=== PATIENT | female | born 1985 | race American Indian/Alaskan Native ===

== ENCOUNTER 2017-11-20 18:55 | Emergency (ER) | payer MEDICAID ==
[2017-11-20 19:20] VITALS: BMI 26.5
[2017-11-20 19:25] VITALS: RESP 18; O2SAT 99
[2017-11-20] MEDS ORDERED: Sodium Chloride 0.9% 1,000 ML IV ONE (19:37)
--- NOTE | 2017-11-20 19:37 | C.PDOC ---
History Of Present Illness Patient presents to the ER 8 weeks , P:1, with a complaint of LLQ abdominal pain and vaginal bleeding that began today. Patient was seen by her PMD recently and had initial blood work done, however, still has not received results. Denies fever, chills, nausea, or vomiting. Time Seen by Provider: 11/20/17 19:36 Chief Complaint (Nursing): Abdominal Pain History Per: Patient History/Exam Limitations: no limitations Onset/Duration Of Symptoms: Hrs Current Symptoms Are (Timing): Still Present Severity: Moderate Pain Scale Rating Of: 4 Location Of Pain/Discomfort: LLQ Radiation Of Pain To:: None Quality Of Discomfort: Unable To Describe Associated Symptoms: denies: Fever, Chills, Nausea, Vomiting Exacerbating Factors: None Alleviating Factors: None Recent travel outside of the [place]: No Abnormal Vaginal Bleeding: Yes Past Medical History Reviewed: Historical Data, Nursing Documentation, Vital Signs Vital Signs: Last Vital Signs Temp 98.0 F 11/20/17 19:10 Pulse 98 H 11/20/17 19:10 Resp 18 11/20/17 19:10 BP 132/87 11/20/17 19:10 Pulse Ox 99 11/20/17 19:59 - Medical History PMH: Gastritis, Gall Bladder Disease Surgical History: Cholecystectomy (2014), Endoscopy, - [facility] Procedures LAPAROSCOPIC CHOLECYSTECTOMY (04/12/15) OTHER OPEN UMBILICAL HERNIORRHAPHY (04/12/15) Family History: States: No Known Family Hx - Social History Hx Tobacco Use: No Hx Alcohol Use: No Hx Substance Use: No - Immunization History Hx Tetanus Toxoid Vaccination: No Hx Influenza Vaccination: No Hx Pneumococcal Vaccination: No Review Of Systems Constitutional: Negative for: Fever, Chills Cardiovascular: Negative for: Light Headedness Gastrointestinal: Positive for: Abdominal Pain. Negative for: Nausea, Vomiting Genitourinary: Positive for: Vaginal Bleeding Physical Exam - Physical Exam Appears: Non-toxic Skin: Warm, Dry Head: Normacephalic Oral Mucosa: Moist Chest: Symmetrical, No Tenderness Cardiovascular: Rhythm Regular Respiratory: No Rales, No Rhonchi, No Wheezing Gastrointestinal/Abdominal: Soft, Tenderness (mild suprapubic), No Guarding, No Rebound Neurological/Psych: Oriented x3 ED Course And Treatment - Laboratory Results Result Diagrams: 11/20/17 19:46 11/20/17 19:46 O2 Sat by Pulse Oximetry: 99 (room air) Pulse Ox Interpretation: Normal Progress Note: Blood work and urinalysis ordered. IV fluids administered. Reevaluation Time: 22:16 Reassessment Condition: Improved Medical Decision Making Medical Decision Making: Upon provider reevaluation patient is feeling better, is medically stable, and requires no further treatment in the ED at this time. Patient will be discharged home with Rx for macrobid . Counseling was provided and all questions were answered regarding diagnosis and need for follow up with the referred clinic. There is agreement to discharge plan. Return if symptoms persist or worsen. 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 I have reviewed the chart and agree that the record accurately reflects my personal performance of the history, physical exam, medical decision making, and the department course for this patient. I have also personally directed, reviewed, and agree with the discharge instructions and disposition.
[2017-11-20] MEDS ORDERED: Sodium Chloride 0.9% 1,000 ML ONE (19:49)
[2017-11-20 19:50] LABS: BASO % 0.3 % (0.0-2.0); EOS # 0.1 K/uL (0.0-0.7); EOS % 0.6 % (0.0-4.0); HEMOGLOBIN 13.1 g/dL (11.0-16.0); LYMPH # 2.7 K/uL (1.0-4.3); LYMPH % 17.2 % (20.0-40.0); MEAN CELL VOLUME 84.2 fL (81.0-99.0); MEAN CORPUSCULAR HEMOGLOBIN 28.7 pg (27.0-31.0); MEAN PLATELET VOLUME 8.9 fL (7.2-11.7); MONO # 0.9 K/uL (0.0-0.8); MONO % 5.3 % (0.0-10.0); NEUT # 12.2 K/uL (1.8-7.0); NEUT % 76.6 % (50.0-75.0); RBC 4.57 Mil/uL (3.80-5.20); RED CELL DISTRIBUTION WIDTH 14.3 % (11.5-14.5); WHITE BLOOD COUNT 15.9 K/uL (4.8-10.8)
[2017-11-20 19:59] LABS: SQUAMOUS EPITHIAL 8 /hpf (0-5); URINE BILIRUBIN NEGATIVE (NEGATIVE); URINE BLOOD 3+ (NEGATIVE); URINE CLARITY Hazy (Clear); URINE COLOR Amber (YELLOW); URINE GLUCOSE (UA) NORMAL (Normal); URINE PROTEIN 1+ mg/dL (NEGATIVE)
[2017-11-20 20:00] LABS: INR 1.1; PROTHROMBIN TIME 12.4 SECONDS (9.7-12.2)
[2017-11-20 20:01] LABS: URINE LEUKOCYTE ESTERASE 1+ Leu/uL (Negative)
[2017-11-20 20:03] LABS: ALBUMIN 3.9 g/dL (3.5-5.0); ALT/SGPT 15 U/L (9-52); AST/SGOT 23 U/L (14-36); BLOOD UREA NITROGEN 9 mg/dL (7-17); GFR AFRICAN-AMERICAN > 60; GFR NON-AFRICAN AMERICAN > 60
--- NOTE | 2017-11-20 22:04 | US ---
EXAM: US First Trimester, Transabdominal CLINICAL HISTORY: 32 years old, female; Signs and symptoms; Lmp or gestational age (in weeks): Unknown lmp; Other: Vag bleed; ; Additional info: Vag bleed hcg [id number] TECHNIQUE: Real-time transabdominal obstetrical ultrasound of the maternal pelvis and a first trimester with image documentation. COMPARISON: No relevant prior studies available. FINDINGS: Gestation: Single live intrauterine gestation. heart rate of 178 beats per minute. [place]-rump length of 3.6 cm, correlating with gestational age of 10 weeks 3 days. Uterus/cervix: 7.6 x 7.5 x 6.6 pedunculated uterine fundal mass. No subchorionic hemorrhage. No cervical dilatation or effacement. Ovaries: RIGHT ovary: Probable 1.7 x 1.5 x 2.2 cm corpus luteal cyst. LEFT ovary: Normal. No adnexal masses. Free fluid: No significant free fluid. IMPRESSION: 1. Single live intrauterine gestation. 2. Probable fibroid. 3. Incidental/non-acute findings are described above.
[2017-11-20 22:30] VITALS: BP 125/80; PULSE 77; TEMP 98.2
== END 2017-11-20 22:31 | disposition home or self-care (01) ==
LOC: C.ER 18:55
DX: O20.0 Threatened abortion (principal); Z3A.10 10 weeks gestation of pregnancy
CPT/HCPCS: 76801; 80053; 81001; 84702; 85025; 85610; 85730; 86850; 86900; 96360; 99285; J7040

== ENCOUNTER 2017-11-23 13:54 | Emergency (ER) | payer MEDICAID ==
[2017-11-23 13:54] VITALS: BMI 26.5
[2017-11-23 14:20] VITALS: O2SAT 99
[2017-11-23 15:03] LABS: BASO # 0.1 K/uL (0.0-0.2); BASO % 0.4 % (0.0-2.0); EOS # 0.1 K/uL (0.0-0.7); EOS % 0.8 % (0.0-4.0); HEMOGLOBIN 12.9 g/dL (11.0-16.0); LYMPH # 2.1 K/uL (1.0-4.3); LYMPH % 15.1 % (20.0-40.0); MEAN CELL VOLUME 84.4 fL (81.0-99.0); MEAN CORPUSCULAR HEMOGLOBIN 28.8 pg (27.0-31.0); MEAN CORPUSCULAR HGB CONC 34.1 g/dL (33.0-37.0); MEAN PLATELET VOLUME 8.8 fL (7.2-11.7); MONO % 6.9 % (0.0-10.0); NEUT # 10.8 K/uL (1.8-7.0); NEUT % 76.8 % (50.0-75.0); RBC 4.49 Mil/uL (3.80-5.20); RED CELL DISTRIBUTION WIDTH 14.1 % (11.5-14.5); WHITE BLOOD COUNT 14.1 K/uL (4.8-10.8)
[2017-11-23 15:16] LABS: ALB/GLOB RATIO 0.9 (1.0-2.1); ALBUMIN 3.7 g/dL (3.5-5.0); ALT/SGPT 16 U/L (9-52); AST/SGOT 23 U/L (14-36); BLOOD UREA NITROGEN 7 mg/dL (7-17); CALCIUM 8.9 mg/dl (8.6-10.4); GFR AFRICAN-AMERICAN > 60; GFR NON-AFRICAN AMERICAN > 60
--- NOTE | 2017-11-23 15:18 | C.PDOC ---
History Of Present Illness 32yo female, presents to ED for evaluation of a heavy menstrual like bleeding since earlier today. patient was evaluated in this ER on 11/20/17 for spotting and was noted to be 10w3d per her pelvic US. She currently denies any fever, chills, abdominal pain, nausea or vomiting. No other complaints. Time Seen by Provider: 11/23/17 14:23 Chief Complaint (Nursing): Female Genitourinary History Per: Patient History/Exam Limitations: no limitations Onset/Duration Of Symptoms: Days Current Symptoms Are (Timing): Still Present Abnormal Vaginal Bleeding: Yes Past Medical History Reviewed: Historical Data, Nursing Documentation, Vital Signs Vital Signs: Last Vital Signs Temp 98.2 F 11/23/17 14:13 Pulse 94 H 11/23/17 14:13 Resp 20 11/23/17 14:13 BP 131/84 11/23/17 14:13 Pulse Ox 99 11/23/17 15:18 - Medical History PMH: No Chronic Diseases, Gastritis, Gall Bladder Disease Denies: Chronic Kidney Disease Surgical History: Cholecystectomy, Endoscopy, - [facility] Procedures LAPAROSCOPIC CHOLECYSTECTOMY (04/12/15) OTHER OPEN UMBILICAL HERNIORRHAPHY (04/12/15) Family History: States: No Known Family Hx, Unknown Family Hx - Social History Hx Tobacco Use: No Hx Alcohol Use: No Hx Substance Use: No - Immunization History Hx Tetanus Toxoid Vaccination: Yes Hx Influenza Vaccination: No Hx Pneumococcal Vaccination: No Review Of Systems Except As Marked, All Systems Reviewed And Found Negative. Constitutional: Negative for: Fever, Chills Cardiovascular: Negative for: Chest Pain Respiratory: Negative for: Shortness of Breath Gastrointestinal: Negative for: Abdominal Pain Genitourinary: Positive for: Vaginal Bleeding Physical Exam - Physical Exam Appears: Non-toxic, No Acute Distress Skin: Normal Color, Warm, Dry Head: Atraumatic, Normacephalic Eye(s): bilateral: Normal Inspection, PERRL Oral Mucosa: Moist Neck: Normal ROM, Supple Chest: Symmetrical Cardiovascular: Rhythm Regular Respiratory: Normal Breath Sounds, No Wheezing Gastrointestinal/Abdominal: Normal Exam, Soft, No Tenderness Back: Normal Inspection, No Vertebral Tenderness Extremity: Normal ROM, No Deformity Neurological/Psych: Oriented x3 ED Course And Treatment - Laboratory Results Result Diagrams: 11/23/17 14:53 11/23/17 14:53 Lab Interpretation: Abnormal (, QHCG 128,730/RH A+,) Urine POC: Positive O2 Sat by Pulse Oximetry: 99 (RA) Pulse Ox Interpretation: Normal Reevaluation Time: 19:11 Reassessment Condition: Unchanged Medical Decision Making Medical Decision Making: IUP, viable subchorionic hemorrage, small 2nd ED eval in 3 days. Disposition Doctor Will See Patient In The: Office Counseled Patient/Family Regarding: Studies Performed, Diagnosis - Disposition Disposition: HOME/ ROUTINE Disposition Time: 19:13 Condition: GOOD Forms: [employer] (Qatari) - Clinical Impression Clinical Impression: Bleeding in early - Scribe Statement The provider has reviewed the documentation as recorded by the Scribe (Katie George) Provider Attestation: All medical record entries made by the Scribe were at my direction and personally dictated by me. I have reviewed the chart and agree that the record accurately reflects my personal performance of the history, physical exam, medical decision making, and the department course for this patient. I have also personally directed, reviewed, and agree with the discharge instructions and disposition.
[2017-11-23 15:30] LABS: SQUAMOUS EPITHIAL 2 /hpf (0-5); URINE BILIRUBIN NEGATIVE (NEGATIVE); URINE BLOOD 2+ (NEGATIVE); URINE CLARITY Hazy (Clear); URINE COLOR Yellow (YELLOW); URINE GLUCOSE (UA) NORMAL (Normal); URINE LEUKOCYTE ESTERASE NEG Leu/uL (Negative); URINE PROTEIN NEGATIVE (NEGATIVE); URINE UROBILINOGEN NORMAL mg/dL (0.2-1.0)
[2017-11-23 19:28] VITALS: BP 127/84; PULSE 108; RESP 18; TEMP 98.9
--- NOTE | 2017-11-24 08:56 | US ---
PROCEDURE: OB Pelvic Ultrasound HISTORY: 11 wks, heavy bleeding, ? natural AB COMPARISON: None available. FINDINGS: UTERUS: Single Live intrauterine gestation. CRL equivalent to 10 weeks 5 days gestatioin Gestational sac diameter equivalent to 10 weeks 1 day gestation age (Ultrasound estimated): 10 weeks 3 days Date of delivery (Ultrasound estimated) : 06/18/2018 Heart rate: 154 bpm. Gladys-gestational hemorrhage: Moderate. This measures roughly 4.3 x 3.4 x 3.5 cm. Uterus measures 4 15.0 x 7.1 x 12.0 cm. There are 2 uterine fibroids. There is a uterine body pedunculated fibroid, 6.6 x 6.8 x 6.7 cm. There is a mid to lower sub serosal fibroid, 1.8 x 1.2 x 1.4 cm. CERVIX: 3.8 cm. Closed. RIGHT OVARY: Measures 2.6 x 1.8 x 1.8 cm. No mass. Normal flow. LEFT OVARY: Measures 3.0 x 2.8 x 3.0 cm. No mass. Normal flow. FREE FLUID: None. OTHER FINDINGS: None. IMPRESSION: Single live intrauterine gestation of approximately 10 weeks 3 days. heart rate 154. There is a moderate subchorionic hemorrhage noted consistent with patient current vaginal bleeding. 2 uterine fibroids as described. Cervix 3.8 cm and closed. Unremarkable ovaries.
== END 2017-11-23 19:36 | disposition home or self-care (01) ==
LOC: C.ER 13:54
DX: O20.9 Hemorrhage in early pregnancy, unspecified (principal); Z3A.10 10 weeks gestation of pregnancy

== ENCOUNTER 2017-11-28 22:57 | Emergency (ER) | payer MEDICAID ==
[2017-11-28 22:57] VITALS: BMI 26.5
[2017-11-28] MEDS ORDERED: Sodium Chloride 0.9% 1,000 ML IV ONE (23:22)
[2017-11-28 23:41] LABS: BASO # 0.1 K/uL (0.0-0.2); BASO % 0.5 % (0.0-2.0); EOS # 0.3 K/uL (0.0-0.7); EOS % 2.2 % (0.0-4.0); HEMOGLOBIN 11.4 g/dL (11.0-16.0); LYMPH # 2.9 K/uL (1.0-4.3); LYMPH % 20.2 % (20.0-40.0); MEAN CORPUSCULAR HEMOGLOBIN 28.8 pg (27.0-31.0); MEAN CORPUSCULAR HGB CONC 33.9 g/dL (33.0-37.0); MEAN PLATELET VOLUME 8.8 fL (7.2-11.7); MONO # 0.8 K/uL (0.0-0.8); MONO % 5.9 % (0.0-10.0); NEUT # 10.1 K/uL (1.8-7.0); NEUT % 71.2 % (50.0-75.0); RBC 3.97 Mil/uL (3.80-5.20); RED CELL DISTRIBUTION WIDTH 14.2 % (11.5-14.5); WHITE BLOOD COUNT 14.2 K/uL (4.8-10.8)
[2017-11-28 23:54] LABS: SQUAMOUS EPITHIAL 16 /hpf (0-5); URINE BACTERIA FEW (<OCC); URINE BILIRUBIN NEGATIVE (NEGATIVE); URINE BLOOD 3+ (NEGATIVE); URINE CLARITY Hazy (Clear); URINE COLOR Yellow (YELLOW); URINE GLUCOSE (UA) NORMAL (Normal); URINE LEUKOCYTE ESTERASE 2+ Leu/uL (Negative); URINE PROTEIN 2+ mg/dL (NEGATIVE); URINE UROBILINOGEN NORMAL mg/dL (0.2-1.0)
[2017-11-28 23:59] LABS: ALBUMIN 3.5 g/dL (3.5-5.0); ALT/SGPT 77 U/L (9-52); AST/SGOT 57 U/L (14-36); BLOOD UREA NITROGEN 10 mg/dL (7-17); CALCIUM 8.4 mg/dl (8.6-10.4); GFR AFRICAN-AMERICAN > 60; GFR NON-AFRICAN AMERICAN > 60
--- NOTE | 2017-11-29 01:22 | C.PDOC ---
History Of Present Illness 32 year old female, with no significant past medical history, who presents to the emergency department complaining of vaginal bleeding onset today. Patient states she got up to the bathroom and had large amount of bleeding and passed POC at home. Patient is currently 11 weeks , A0. Patient reports still having some mild vaginal bleeding and pelvic cramping. No further medical complaints. PMD: None provided. 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) Current Symptoms Are (Timing): Still Present Quality Of Discomfort: Cramping Associated Symptoms: Other (vaginal bleeding & pelvic cramping) Abnormal Vaginal Bleeding: Yes : 2 Para: 1 Miscarriage: 0 Past Medical History Reviewed: Historical Data, Nursing Documentation, Vital Signs Vital Signs: Last Vital Signs Temp 98.8 F 11/29/17 03:27 Pulse 89 11/29/17 03:27 Resp 20 11/29/17 03:27 BP 115/79 11/29/17 03:27 Pulse Ox 98 11/29/17 03:27 - Medical History PMH: Gastritis, Gall Bladder Disease Denies: Chronic Kidney Disease Surgical History: Cholecystectomy, Endoscopy, - [facility] Procedures LAPAROSCOPIC CHOLECYSTECTOMY (04/12/15) OTHER OPEN UMBILICAL HERNIORRHAPHY (04/12/15) Family History: States: Unknown Family Hx - Social History Hx Tobacco Use: No Hx Alcohol Use: No Hx Substance Use: No - Immunization History Hx Tetanus Toxoid Vaccination: No Hx Influenza Vaccination: No Hx Pneumococcal Vaccination: No Review Of Systems Except As Marked, All Systems Reviewed And Found Negative. Genitourinary: Positive for: Vaginal Bleeding, Pelvic Pain (cramping) Physical Exam - Physical Exam Appears: No Acute Distress (painful), Other (upset/flat) Skin: Normal Color, Warm, Dry Head: Atraumatic, Normacephalic Eye(s): bilateral: Normal Inspection, PERRL, EOMI Neck: Normal ROM Cardiovascular: Rhythm Regular, No Murmur Respiratory: Normal Breath Sounds, No Wheezing Gastrointestinal/Abdominal: Tenderness (mild suprapubic) Back: Normal Inspection, No CVA Tenderness, No Vertebral Tenderness Extremity: Normal ROM (upper and lower extremities), No Deformity, No Swelling Neurological/Psych: Oriented x3 Gait: Steady ED Course And Treatment - Laboratory Results Result Diagrams: 11/28/17 23:38 11/28/17 23:38 Progress Note: Initial Plan: Type and screen, Beta-HCG Quantitative, CMP, CBC w / differential, Sodium Chloride 0.9% 1,000 ml IV 1,000 mls/hr, Urinalysis, Pelvis/Transvag US. Ultrasound Transvag/Pelvis: 02:26 FINDINGS: . Prior study 11/23/2017 demonstrated a single live IUP 10 weeks 5 days. . The previously seen intrauterine is no longer present. . The endometrium measures 18 mm. The uterus measures 12 x 6.5 x 8 cm. . Again seen are uterine fibroids with the larger one measuring 7 cm in. diameter in the left uterine fundus and the smaller measuring 1.7 cm in. diameter in the posterior uterine body. . Probable corpus luteum in the maternal right ovary. . The maternal left ovary is normal. . Flow is demonstrated to both maternal ovaries. . The right ovary has a volume of 10 ml and the left ovary has a vol of 5 ml. . Trace free fluid is noted. . . IMPRESSION: . Previously seen intrauterine is no longer present. . Stable uterine fibroids. 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 I have reviewed the chart and agree that the record accurately reflects my personal performance of the history, physical exam, medical decision making, and the department course for this patient. I have also personally directed, reviewed, and agree with the discharge instructions and disposition.
--- NOTE | 2017-11-29 02:27 | US ---
EXAM: US Pelvis Complete, Transabdominal CLINICAL HISTORY: 32 years old, female; Pain and signs and symptoms; Other: Pelvic pain / bleeding; Additional info: , pelvic pain, vaginal bleeding TECHNIQUE: Real-time transabdominal pelvic ultrasound (complete) with image documentation. COMPARISON: No relevant prior studies available. EXAM: US Pelvis, Transvaginal EXAM DATE/TIME: 11/28/2017 11:22 PM CLINICAL HISTORY: 32 years old, female; Pain and signs and symptoms; Other: Pelvic pain / bleeding; Additional info: , pelvic pain, vaginal bleeding TECHNIQUE: Real-time transvaginal pelvic ultrasound (complete) with image documentation. Transvaginal imaging was used for better evaluation of the endometrium and adnexa. COMPARISON: US - 1ST TRIMESTER SINGLE 2017-11-23 16:06 FINDINGS: Prior study 11/23/2017 demonstrated a single live IUP 10 weeks 5 days. The previously seen intrauterine is no longer present. The endometrium measures 18 mm. The uterus measures 12 x 6.5 x 8 cm. Again seen are uterine fibroids with the larger one measuring 7 cm in diameter in the left uterine fundus and the smaller measuring 1.7 cm in diameter in the posterior uterine body. Probable corpus luteum in the maternal right ovary. The maternal left ovary is normal. Flow is demonstrated to both maternal ovaries. The right ovary has a volume of 10 ml and the left ovary has a vol of 5 ml. Trace free fluid is noted. IMPRESSION: Previously seen intrauterine is no longer present. Stable uterine fibroids.
[2017-11-29 03:28] VITALS: BP 115/79; PULSE 89; RESP 20; TEMP 98.8; O2SAT 98
== END 2017-11-29 03:28 | disposition home or self-care (01) ==
LOC: C.ER 22:57
DX: O03.9 Complete or unspecified spontaneous abortion without complication (principal); O34.11 Maternal care for benign tumor of corpus uteri, first trimester; D25.9 Leiomyoma of uterus, unspecified; Z3A.11 11 weeks gestation of pregnancy
CPT/HCPCS: 76830; 76856; 80053; 81001; 84702; 85025; 86850; 86900; 96360; 99285; J7040

== ENCOUNTER 2018-11-06 11:21 | Emergency (ER) | payer MEDICAID ==
[2018-11-06 11:36] VITALS: BMI 31.5
[2018-11-06 11:39] VITALS: BP 123/84; PULSE 106; RESP 20; TEMP 98.6; O2SAT 99
[2018-11-06] MEDS ORDERED: Amoxicillin-Clav 875-125 mg Tab PO STA (12:55)
--- NOTE | 2018-11-06 12:58 | C.PDOC ---
History Of Present Illness 33-year-old female presents to the ED for evaluation of sore throat, generalized body aches and lowgrade fever for two days. Patient denies high fever, lethargy, drooling, neck pain, chills, chest pain, dyspnea, shortness of breath, wheezing, abdominal pain, vomiting/diarrhea, UTI symptoms, rash , recent travel or known sick contacts. Time Seen by Provider: 11/06/18 12:18 Chief Complaint (Nursing): ENT Problem History Per: Patient History/Exam Limitations: None Onset/Duration Of Symptoms: Days (2) Current Symptoms Are (Timing): Still Present Past Medical History Reviewed: Historical Data, Nursing Documentation, Vital Signs Vital Signs: Last Vital Signs Temp 98.6 F 11/06/18 11:36 Pulse 106 H 11/06/18 11:36 Resp 20 11/06/18 11:36 BP 123/84 11/06/18 11:36 Pulse Ox 99 11/06/18 11:36 - Medical History PMH: Gastritis, Gall Bladder Disease Denies: Chronic Kidney Disease Surgical History: Cholecystectomy, [facility]oscopy, - [facility] Procedures LAPAROSCOPIC CHOLECYSTECTOMY (04/12/15) OTHER OPEN UMBILICAL HERNIORRHAPHY (04/12/15) Family History: States: Unknown Family Hx - Social History Hx Tobacco Use: No Hx Alcohol Use: No Hx Substance Use: No - Immunization History Hx Tetanus Toxoid Vaccination: No Hx Influenza Vaccination: No Hx Pneumococcal Vaccination: No Review Of Systems Constitutional: Positive for: Fever. Negative for: Chills, Other (lethargy ) ENT: Positive for: Throat Pain. Negative for: Other (drooling ) Respiratory: Negative for: Shortness of Breath, Wheezing Gastrointestinal: Negative for: Vomiting, Abdominal Pain, Diarrhea Genitourinary: Negative for: Dysuria, Frequency, Incontinence, Hematuria Musculoskeletal: Positive for: Other (generalized body aches ). Negative for: Neck Pain Skin: Negative for: Rash Physical Exam - Physical Exam Appears: Well, Non-toxic, No Acute Distress Skin: Normal Color, Warm, Dry, No Rash Head: Normacephalic Eye(s): bilateral: PERRL Ear(s): Bilateral: Normal Nose: No Flaring, No Discharge Oral Mucosa: Moist, No Drooling Tongue: Normal Appearing Lips: Normal Appearing Throat: Other (bilateral pharyngeal erythema and edema, tonsillar erythema and edema ) Neck: Trachea Midline, Supple, No Other (meningeal sign ) Cardiovascular: Rhythm Regular, No Murmur Respiratory: No Decreased Breath Sounds, No Accessory Muscle Use, No Rales, No Stridor, No Wheezing Extremity: Normal ROM, No Deformity, No Swelling Neurological/Psych: Oriented x3, Normal Speech ED Course And Treatment O2 Sat by Pulse Oximetry: 99 (on RA) Pulse Ox Interpretation: Normal Progress Note: Augmentin PO and Prednisone PO given. On re-eval, pt is afebrile, hemodynamicaly stable. Non-toxic, tolerae Po well in ED. ENT: exam c/w acute pharyngitis uvula midline, no edema. neck: Supple, (-) meningeal sign. Lungs: CTA B/L, BS equal B/L. Pt advised. ref. to f/u with PM Din 2-3 days for re-eval. return to Ed if any new changes. Disposition Counseled Patient/Family Regarding: Diagnosis, Need For Followup, Rx Given - Disposition Referrals: Sonny Ferrara MD [Staff Provider] - Disposition: HOME/ ROUTINE Disposition Time: 12:56 Condition: STABLE Additional Instructions: Encourage fluids take medication as prescribed Follow up with PMD in 2-3 days for re-evaluation. Return if any worsening or new changes. 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 - Scribe Statement The provider has reviewed the documentation as recorded by the Scribe (Clotilde Wilson) All medical record entries made by the Scribe were at my direction and personally dictated by me. I have reviewed the chart and agree that the record accurately reflects my personal performance of the history, physical exam, medical decision making, and the department course for this patient. I have also personally directed, reviewed, and agree with the discharge instructions and disposition.
[2018-11-06] MEDS ORDERED: Amoxicillin-Clav 875-125 mg Tab PO ONE (13:07)
== END 2018-11-06 13:09 | disposition home or self-care (01) ==
LOC: C.ER 11:21
DX: J02.9 Acute pharyngitis, unspecified (principal)